=== PATIENT | male | born 1970 ===

== ENCOUNTER 2018-07-05 12:08 | Emergency (ER) | payer MEDICAID, MEDICARE, OTHER ==
[2018-07-05] MEDS ORDERED: Iohexol 240 (50 ml) PO ONE (12:27)
[2018-07-05] MEDS ORDERED: Iohexol 240 (50 ml) ONE (12:44)
[2018-07-05 13:13] LABS: BASO # 0.1 K/uL (0.0-0.2); EOS # 0.2 K/uL (0.0-0.7); EOS % 3.6 % (0.0-4.0); HEMOGLOBIN 14.7 g/dL (12.0-18.0); LYMPH # 1.3 K/uL (1.0-4.3); LYMPH % 25.6 % (20.0-40.0); MEAN CORPUSCULAR HEMOGLOBIN 32.5 pg (27.0-31.0); MEAN CORPUSCULAR HGB CONC 33.8 g/dL (33.0-37.0); MEAN PLATELET VOLUME 9.1 fl (7.2-11.7); MONO # 0.7 K/uL (0.0-0.8); MONO % 14.2 % (0.0-10.0); NEUT # 2.8 K/uL (1.8-7.0); NEUT % 55.6 % (50.0-75.0); NRBC % 0.1 % (0.0-0.0); RBC 4.53 Mil/uL (4.40-5.90); RED CELL DISTRIBUTION WIDTH 13.1 % (11.5-14.5)
--- NOTE | 2018-07-05 13:16 | CP.PCM.CON ---
History of Present Illness - History of Present Illness History of Present Illness: General Surgery - Dr. Floyd 48yo M w/ hx of B/L inguinal hernia [place] [address] Collier, presenting with complaints of pain at site of a known recurrent Left inguinal hernia. Pt states he's had this recurrence for a few years now. He occasionally has pain to the area but as of the past several days he's noticed it become significantly larger and more painful. He also complains of nausea and intermittent constipation, as well as urinary urgency. He denies any vomiting, diarrhea, dysuria, hematuria, fevers/chills, sob or chest pain. Pt states that he has never been able to reduce the hernia. PMH: none PSH: Right shoulder surgery w/ screws, B/L Inguinal hernia repair (2010) NKDA No meds Smokes 1 ppd, ETOH socially, No illicit drug use Pt was seen in the ED. Vitals stable and WNL. Pt is noted to have a large incarcerated Left inguinal hernia with skin darkening over the inguinal canal. Labs and CT scan pending. Review of Systems - Review of Systems All systems: reviewed and no additional remarkable complaints except (as per HPI ) Past Patient History - Past Social History Smoking Status: Current Some Days Smoker - GASTROINTESTINAL Other/Comment: inguinal hernia - PSYCHIATRIC Hx Substance Use: No - SURGICAL HISTORY Hx Appendectomy: Yes Hx Herniorrhaphy: Yes Hx Orthopedic Surgery: Yes Other/Comment: rt. shoulder sx. w/ screw - ANESTHESIA Hx Anesthesia: Yes Hx Anesthesia Reactions: No Meds Allergies/Adverse Reactions: Allergies Allergy/AdvReac Type Severity Reaction Status Date / Time No Known Allergies Allergy Verified 07/05/18 12:20 Physical Exam - Constitutional Appears: Well, No Acute Distress - Head Exam Head Exam: ATRAUMATIC, NORMAL INSPECTION, NORMOCEPHALIC - Eye Exam Eye Exam: Normal appearance - ENT Exam ENT Exam: Mucous Membranes Moist, Normal Exam - Respiratory Exam Respiratory Exam: Clear to Auscultation Bilateral, NORMAL BREATHING PATTERN - Cardiovascular Exam Cardiovascular Exam: REGULAR RHYTHM - GI/Abdominal Exam GI & Abdominal Exam: Distended (mild), Hernia (Large L inguinal hernia, not reducible), Soft, Tenderness (mild ttp over L inguinal canal). absent: Firm, Guarding, Rebound, Rigid - Neurological Exam Neurological exam: Alert, Oriented x3 - Psychiatric Exam Psychiatric exam: Normal Affect, Normal Mood - Skin Skin Exam: Dry, Intact Results - Vital Signs Recent Vital Signs: Last Vital Signs Temp 98.1 F 07/05/18 12:20 Pulse 92 H 07/05/18 12:20 Resp 18 07/05/18 12:20 BP 102/67 07/05/18 12:20 Pulse Ox 100 07/05/18 12:20 Assessment & Plan - Assessment and Plan (Free Text) Assessment: 48yo M w/ Recurrent, Incarcerated Left Inguinal Hernia
[2018-07-05 13:25] LABS: ALB/GLOB RATIO 1.2 (1.0-2.1); ALBUMIN 3.9 g/dL (3.5-5.0); ALT/SGPT 141 U/L (21-72); AST/SGOT 84 U/L (17-59); BLOOD UREA NITROGEN 11 mg/dl (9-20); CALCIUM 9.2 mg/dL (8.4-10.2); GFR NON-AFRICAN AMERICAN > 60
[2018-07-05] MEDS ORDERED: Sodium Chloride 0.9% 50 ML IV ONE (15:14)
[2018-07-05] MEDS ORDERED: Iohexol 300 100 ML IJ ONE (15:14)
--- NOTE | 2018-07-05 16:12 | CT ---
Date of service: 07/05/2018 PROCEDURE: CT Abdomen and Pelvis with contrast HISTORY: large scrotal hernia, scan through scrotum COMPARISON: 01/14/2016 CT abdomen and pelvis. TECHNIQUE: Contrast dose: 90 cc Omnipaque 300 Radiation dose: Total exam DLP = 731.21 mGy-cm. This CT exam was performed using one or more of the following dose reduction techniques: Automated exposure control, adjustment of the mA and/or kV according to patient size, and/or use of iterative reconstruction technique. FINDINGS: LOWER THORAX: Unremarkable. LIVER: Unremarkable. No gross lesion or ductal dilatation. GALLBLADDER AND BILE DUCTS: Unremarkable. PANCREAS: Unremarkable. No gross lesion or ductal dilatation. SPLEEN: Unremarkable. ADRENALS: Unremarkable. No mass. KIDNEYS AND URETERS: Unremarkable. No hydronephrosis. No solid mass. Multiple punctate nonobstructing left renal calculi. No change compared to the prior study. Incidental 1.5 cm cyst lower pole right kidney. VASCULATURE: Unremarkable. No aortic aneurysm. BOWEL: Constipation without fecal impaction or obstruction. APPENDIX: No abnormalities to suggest acute appendicitis. No right lower quadrant inflammatory processes identified. PERITONEUM: Unremarkable. No free fluid. No free air. LYMPH NODES: Unremarkable. No enlarged lymph nodes. BLADDER: Unremarkable. REPRODUCTIVE: Large left hydrocele on CT measuring 15 x 8.4 x 13.8 cm. No evidence of associated inguinal hernia. BONES: No acute fracture. OTHER FINDINGS: None. IMPRESSION: Large, unilateral-left hydrocele. No evidence of inguinal hernia. Additional benign and/or incidental findings described above. No significant interval change otherwise detected. No acute findings related to/accounting for the clinical presentation.
--- NOTE | 2018-07-05 16:23 | ED PDOC ---
HPI: General Adult Time Seen by Provider: 07/05/18 12:24 Chief Complaint (Nursing): Male Genitourinary Chief Complaint (Provider): L scrotal mass History Per: Patient History/Exam Limitations: no limitations Location Of Discomfort (Image): 1 - pain swelling Similar Symptoms Previously: ++ Recently: Treated By A Physician Additional Complaint(s): 48yo male c/o L inguinal pain and scrotal swelling, had an inguinal hernia repair at [facility] approx 7yrs ago and believes symptoms have returned. Also notes some ?hyperpigmentation to the L abdominal wall ongoing for about a week. Denies fever, GI symptoms, weakness, back pain, urinary symptoms other than occassional stress incontinence. Past Medical History Reviewed: Historical Data, Nursing Documentation, Vital Signs Vital Signs: Last Vital Signs Temp 98.1 F 07/05/18 12:20 Pulse 92 H 07/05/18 12:20 Resp 18 07/05/18 12:20 BP 102/67 07/05/18 12:20 Pulse Ox 100 07/05/18 17:03 - Medical History PMH: Hiatal Hernia - Surgical History Surgical History: Appendectomy, Hernia Repair - Family History Family History: States: Unknown Family Hx - Living Arrangements Living Arrangements: With Family - Social History Current smoker - smoking cessation education provided: No - Immunization History Hx Tetanus Toxoid Vaccination: No Hx Influenza Vaccination: No Hx Pneumococcal Vaccination: No - Home Medications Home Medications: Ambulatory Orders Medication Instructions Recorded Acetaminophen [Acetaminophen Extra 2 tab PO Q6H PRN #50 tablet 09/05/16 Strength] traMADol [Ultram] 50 mg PO TID PRN #12 tab 07/05/18 - Allergies Allergies/Adverse Reactions: Allergies Allergy/AdvReac Type Severity Reaction Status Date / Time No Known Allergies Allergy Verified 07/05/18 12:20 Review of Systems ROS Statement: Except As Marked, All Systems Reviewed And Found Negative Constitutional: Negative for: Fever Respiratory: Negative for: Cough Gastrointestinal: Positive for: Abdominal Pain Genitourinary Male: Positive for: Incontinence, Scrotal Pain. Negative for: Penile Discharge Musculoskeletal: Negative for: Neck Pain, Back Pain Skin: Positive for: Other (dark area on abdomen). Negative for: Rash, Lesions Neurological: Negative for: Weakness, Numbness Psych: Negative for: Anxiety Physical Exam - Reviewed Nursing Documentation Reviewed: Yes Vital Signs Reviewed: Yes - Physical Exam Appears: Positive for: Well, Non-toxic, No Acute Distress Head Exam: Positive for: ATRAUMATIC, NORMAL INSPECTION, NORMOCEPHALIC Skin: Positive for: Normal Color, Warm, DRY Eye Exam: Positive for: EOMI, Normal appearance, PERRL ENT: Positive for: Normal ENT Inspection Neck: Positive for: Normal, Painless ROM Cardiovascular/Chest: Positive for: Regular Rate, Rhythm Respiratory: Positive for: CNT, Normal Breath Sounds Gastrointestinal/Abdominal: Positive for: Soft, Other (neg hernia in inguinal canal palpated). Negative for: Tenderness Male Genital Exam: Positive for: other (large edematous L scrotum nontender) Back: Positive for: Normal Inspection Extremity: Positive for: Normal ROM Neurologic/Psych: Positive for: Alert, Oriented - Laboratory Results Result Diagrams: 07/05/18 13:07 07/05/18 13:07 - ECG O2 Sat by Pulse Oximetry: 100 Medical Decision Making Medical Decision Making: Accession No. : [id number] Patient Name / ID : NO DUBOSE / [id number] Exam Date : 07/05/2018 15:22:35 ( Approved ) Study Comment : Sex / Age : M / 48Y Creator : Petar Perales MD Dictator : Petar Perales MD Manager Of Software : Office Clerk : Petar Perales MD Approver2 : Report Date : 07/05/2018 16:10:59 My Comment : Date of service: 07/05/2018 PROCEDURE: CT Abdomen and Pelvis with contrast HISTORY: large scrotal hernia, scan through scrotum COMPARISON: 01/14/2016 CT abdomen and pelvis. TECHNIQUE: Contrast dose: 90 cc Omnipaque 300 Radiation dose: Total exam DLP = 731.21 mGy-cm. This CT exam was performed using one or more of the following dose reduction techniques: Automated exposure control, adjustment of the mA and/or kV according to patient size, and/or use of iterative reconstruction technique. FINDINGS: LOWER THORAX: Unremarkable. LIVER: Unremarkable. No gross lesion or ductal dilatation. GALLBLADDER AND BILE DUCTS: Unremarkable. PANCREAS: Unremarkable. No gross lesion or ductal dilatation. SPLEEN: Unremarkable. ADRENALS: Unremarkable. No mass. KIDNEYS AND URETERS: Unremarkable. No hydronephrosis. No solid mass. Multiple punctate nonobstructing left renal calculi. No change compared to the prior study. Incidental 1.5 cm cyst lower pole right kidney. VASCULATURE: Unremarkable. No aortic aneurysm. BOWEL: Constipation without fecal impaction or obstruction. APPENDIX: No abnormalities to suggest acute appendicitis. No right lower quadrant inflammatory processes identified. PERITONEUM: Unremarkable. No free fluid. No free air. LYMPH NODES: Unremarkable. No enlarged lymph nodes. BLADDER: Unremarkable. REPRODUCTIVE: Large left hydrocele on CT measuring 15 x 8.4 x 13.8 cm. No evidence of associated inguinal hernia. BONES: No acute fracture. OTHER FINDINGS: None. IMPRESSION: Large, unilateral-left hydrocele. No evidence of inguinal hernia. Additional benign and/or incidental findings described above. No significant interval change otherwise detected. No acute findings related to/accounting for the clinical presentation. DC to followup w urology. He stated scrotal swelling ongoing for years and no current pain. Suggested urology clinic at [facility] if insurance issues preclude obtaining care locally, but gave internet consultant urology contact info. Disposition - Clinical Impression Clinical Impression: Hydrocele - Patient ED Disposition Is Patient to be Admitted: No Counseled Patient/Family Regarding: Studies Performed, Diagnosis, Need For Followup - Disposition Referrals: Lucero Ramos MD [Medical Doctor] - Disposition: Routine/Home Disposition Time: 16:23 Condition: STABLE Additional Instructions: Followup with urology for advice on intervention for large hydrocele. Return to ER for any worse or new symptoms. Prescriptions: traMADol [Ultram] 50 mg PO TID PRN #12 tab PRN Reason: Pain, Moderate (4-7) Instructions: Hydrocele/Varicocele (DC) Forms: [employer] (Portuguese)
[2018-07-05 17:07] VITALS: BP 132/78; PULSE 86; RESP 20; TEMP 98.6
[2018-07-05 17:08] VITALS: O2SAT 100
== END 2018-07-05 17:07 | disposition home or self-care (01) ==
LOC: H.ER 12:08
DX: N43.3 Hydrocele, unspecified (principal); N39.3 Stress incontinence (female) (male)
CPT/HCPCS: 74177; 80053; 85025; 99284; Q9966; Q9967

== ENCOUNTER 2019-01-03 11:44 | Emergency (ER) | payer MEDICAID, OTHER ==
[2019-01-03 11:52] VITALS: BMI 22.1
[2019-01-03 11:54] VITALS: RESP 18; O2SAT 99
--- NOTE | 2019-01-03 14:28 | CT ---
Date of service: 01/03/2019 PROCEDURE: CT Lumbar Spine without contrast HISTORY: R/O cord compression, + bowel/bladder incontinence COMPARISON: None available. TECHNIQUE: Axial computed tomography images were obtained of the lumbar spine without the use of intravenous contrast. Coronal and sagittal reformatted images were created and reviewed. Radiation dose: Total exam DLP = 367.88 mGy-cm. This CT exam was performed using one or more of the following dose reduction techniques: Automated exposure control, adjustment of the mA and/or kV according to patient size, and/or use of iterative reconstruction technique. FINDINGS: VERTEBRAE: Limited straightening. No fracture. No spondylolisthesis. No destructive bony lesion identified. DISCS/SPINAL CANAL/NEURAL FORAMINA: L1-2: Unremarkable. L2-3: Unremarkable. L3-4: Circumferential disc bulging flattens the ventral thecal sac somewhat but without significant central stenosis. L4-5: Circumferential disc bulging is minimal blood flattens the ventral thecal sac somewhat without significant central stenosis resulting. L5-S1: Unremarkable. PARASPINAL SOFT TISSUES: Unremarkable. OTHER FINDINGS: None. IMPRESSION: Seven straightened lumbar curvature without fracture or spondylolisthesis identified. Minimal disc bulging is appreciate without significant central canal stenosis though flattening the ventral thecal sac is encountered (L3-4 and L4-5).
[2019-01-03 14:31] LABS: BASO # 0.1 K/uL (0.0-0.2); BASO % 0.9 % (0.0-2.0); EOS # 0.1 K/uL (0.0-0.7); EOS % 1.8 % (0.0-4.0); HEMOGLOBIN 15.8 g/dL (12.0-18.0); LYMPH # 2.6 K/uL (1.0-4.3); LYMPH % 30.8 % (20.0-40.0); MEAN CELL VOLUME 96.9 fl (80.0-94.0); MEAN CORPUSCULAR HEMOGLOBIN 32.4 pg (27.0-31.0); MEAN CORPUSCULAR HGB CONC 33.5 g/dL (33.0-37.0); MEAN PLATELET VOLUME 9.2 fl (7.2-11.7); MONO % 11.7 % (0.0-10.0); NEUT # 4.7 K/uL (1.8-7.0); NEUT % 54.8 % (50.0-75.0); NRBC % 0.1 % (0.0-0.0); RBC 4.87 Mil/uL (4.40-5.90); RED CELL DISTRIBUTION WIDTH 13.2 % (11.5-14.5); SQUAMOUS EPITHIAL < 1 /hpf (0-5); URINE BACTERIA RARE (<OCC); URINE BILIRUBIN NEGATIVE (NEGATIVE); URINE BLOOD NEGATIVE (NEGATIVE); URINE CLARITY CLEAR (Clear); URINE COLOR YELLOW (YELLOW); URINE GLUCOSE (UA) NEG (NEGATIVE); URINE LEUKOCYTE ESTERASE NEG Leu/uL (Negative); URINE PROTEIN NEGATIVE (NEGATIVE); URINE UROBILINOGEN 0.2-1.0 mg/dL (0.2-1.0); WHITE BLOOD COUNT 8.5 K/uL (4.8-10.8)
--- NOTE | 2019-01-03 14:53 | ED PDOC ---
HPI: General Adult Time Seen by Provider: 01/03/19 12:49 Chief Complaint (Nursing): Hip Pain Chief Complaint (Provider): left sided hip pain, urinary and fecal incontinence History Per: Patient History/Exam Limitations: no limitations Onset/Duration Of Symptoms: Days (x3) Current Symptoms Are (Timing): Still Present Additional Complaint(s): Aubrey Romo is a 48 year old male, with a past medical history of bilateral inguinal hernia repair several years ago with return of left inguinal hernia at least x1 year ago, who presents to the emergency department complaining of intermittent left sided hip pain, fecal and urinary incontinence onset for x3 days. Patient states he has a known left inguinal hernia and hydrocele. Patient states hip pain is unrelated to activity and reports a left sided numbness on heels. Patient also reports developing urinary and fecal incontinence and states he feels nauseous when he attempts to have a bowel movement or urinate. Patient states his left great toe was rupal or spasming over the past couple of days but denies any vomiting, diarrhea, gait instability or other medical complaints. PMD: Clinic Past Medical History Reviewed: Historical Data, Nursing Documentation, Vital Signs Vital Signs: Last Vital Signs Temp 98.2 F 01/03/19 11:53 Pulse 83 01/03/19 11:53 Resp 18 01/03/19 11:53 BP 129/81 01/03/19 11:53 Pulse Ox 99 01/03/19 11:53 - Medical History PMH: Hiatal Hernia - Surgical History Surgical History: Appendectomy, Hernia Repair - Family History Family History: States: Unknown Family Hx - Social History Current smoker - smoking cessation education provided: Yes (Current some days smoker) Alcohol: Social Drugs: Denies - Immunization History Hx Tetanus Toxoid Vaccination: No Hx Influenza Vaccination: No Hx Pneumococcal Vaccination: No - Home Medications Home Medications: Ambulatory Orders Medication Instructions Recorded Acetaminophen [Acetaminophen Extra 2 tab PO Q6H PRN #50 tablet 09/05/16 Strength] traMADol [Ultram] 50 mg PO TID PRN #12 tab 07/05/18 Ibuprofen [Motrin Tab] 600 mg PO Q6 PRN 7 Days tab 01/03/19 - Allergies Allergies/Adverse Reactions: Allergies Allergy/AdvReac Type Severity Reaction Status Date / Time No Known Allergies Allergy Verified 07/05/18 12:20 Review of Systems ROS Statement: Except As Marked, All Systems Reviewed And Found Negative Gastrointestinal: Positive for: Nausea. Negative for: Vomiting, Diarrhea Genitourinary Male: Positive for: Incontinence (bowel and bladder) Musculoskeletal: Positive for: Other (left hip pain) Neurological: Positive for: Numbness (on heel). Negative for: Other (gait instability) Physical Exam - Reviewed Nursing Documentation Reviewed: Yes Vital Signs Reviewed: Yes - Physical Exam Appears: Positive for: No Acute Distress Head Exam: Positive for: ATRAUMATIC, NORMAL INSPECTION, NORMOCEPHALIC Skin: Positive for: Normal Color, Warm, Dry Eye Exam: Positive for: Normal appearance, EOMI, PERRL Neck: Positive for: Normal, Painless ROM Cardiovascular/Chest: Positive for: Regular Rate, Rhythm. Negative for: Murmur Respiratory: Positive for: Normal Breath Sounds. Negative for: Respiratory Distress Pulses-Femoral (L): 2+ Pulses-Post. Tibialis (R): 2+ Gastrointestinal/Abdominal: Positive for: Normal Exam, Soft. Negative for: Tenderness, Guarding, Rebound Male Genital Exam: Positive for: scrotum tenderness (L) (mildly tender. Swelling of left scrotum but no erythema. ), other (Apprentice Plumber: ED JUAN A Sim. ). Negative for: scrotum tenderness (R) Back: Positive for: Normal Inspection (No ecchymosis, erythema or tenderness on palpation). Negative for: L CVA Tenderness, R CVA Tenderness, Vertebral Tenderness Rectal: Positive for: Normal Exam (Apprentice Plumber: news technical directormoris giraldo). Negative for: Hemorrhoids Extremity: Positive for: Normal ROM (Normal ROM with flexion and abduction of hip. Normal ROM with flexion and extension of knee.), Other (Some pain on abduction and flexion of left hip passively.) Neurologic/Psych: Positive for: Alert, Oriented. Negative for: Motor/Sensory Deficits - Laboratory Results Result Diagrams: 01/03/19 14:15 01/03/19 14:15 Lab Results: Urine Color Yellow (YELLOW) 01/03/19 14:15 Urine Clarity Clear (Clear) 01/03/19 14:15 Urine pH 6.0 (5.0-8.0) 01/03/19 14:15 Ur Specific [place] 1.009 (1.003-1.030) 01/03/19 14:15 Urine Protein Negative mg/dL (NEGATIVE) 01/03/19 14:15 Urine Glucose (UA) Neg mg/dL (NEGATIVE) 01/03/19 14:15 Urine Ketones Negative mg/dL (NEGATIVE) 01/03/19 14:15 Urine Blood Negative (NEGATIVE) 01/03/19 14:15 Urine Nitrate Negative (NEGATIVE) 01/03/19 14:15 Urine Bilirubin Negative (NEGATIVE) 01/03/19 14:15 Urine Urobilinogen 0.2-1.0 mg/dL (0.2-1.0) 01/03/19 14:15 Ur Leukocyte Esterase Neg Indra/uL (Negative) 01/03/19 14:15 Urine RBC (Auto) 2 /hpf (0-3) 01/03/19 14:15 Urine Microscopic WBC < 1 /hpf (0-5) 01/03/19 14:15 Ur Squamous Epith Cells < 1 /hpf (0-5) 01/03/19 14:15 Urine Bacteria Rare (<OCC) 01/03/19 14:15 - ECG O2 Sat by Pulse Oximetry: 99 (RA) Pulse Ox Interpretation: Normal Medical Decision Making Medical Decision Making: Time: 12:49 Initial Impression: Hernia. Will do lumbar spine CT w/o contrast to r/o cord compression. Initial Plan: --Lumbar Spine w/o contrast [CT] --CMP --CBC w/ differential --Motrin tab 600 mg PO --Urine culture --Urinalysis --Testes Duplex Complete [US] --Reevaluation 14:[address] FINDINGS: VERTEBRAE: Limited straightening. No fracture. No spondylolisthesis. No destructive bony lesion identified. DISCS/SPINAL CANAL/NEURAL FORAMINA: L1-2: Unremarkable. L2-3: Unremarkable. L3-4: Circumferential disc bulging flattens the ventral thecal sac somewhat but without significant central stenosis. L4-5: Circumferential disc bulging is minimal blood flattens the ventral th ecal sac somewhat without significant central stenosis resulting. L5-S1: Unremarkable. PARASPINAL SOFT TISSUES: Unremarkable. OTHER FINDINGS: None. IMPRESSION: Seven straightened lumbar curvature without fracture or spondylolisthesis identified. Minimal disc bulging is appreciate without significant central canal stenosis though flattening the ventral thecal sac is encountered (L3-4 and L4-5). 16:28 Testicular US FINDINGS: RIGHT TESTICLE: Measures 5.5 x 3.4 x 2.4 cm. Normal echotexture and flow. RIGHT EPIDIDYMIS: Epididymal head measures 1.1 x 1.7 x 1.1 cm. Grossly unremarkable appearance with normal flow. LEFT TESTICLE: Measures 6.7 x 3.7 x 3.3 cm. Normal echotexture and flow, despite being mildly enlarged. LEFT EPIDIDYMIS: Epididymal head measures 0.5 x 0.4 x 1.4 cm. Grossly unremarkable appearance with normal flow. HYDROCELE: Mild right hydrocele. Gross left hydrocele. VARICOCELE: None. OTHER FINDINGS: No hernia identified either hemiscrotum. IMPRESSION: Gross mildly complicated hydrocele with internal debris but no color Doppler blood flow. Examination otherwise remarkable for prominent left testicle but no cyst or solid mass related. ----- Scribe Attestation: Documented by Xu Dong, acting as a scribe for Gina Antony PA-C. Provider Scribe Attestation: All medical record entries made by the Scribe were at my direction and personally dictated by me. I have reviewed the chart and agree that the record accurately reflects my personal performance of the history, physical exam, medical decision making, and the department course for this patient. I have also personally directed, reviewed, and agree with the discharge instructions and disposition. Dr. Phelps of Urology called and came to see patient in ER. He performed bedside bladder scan w/o any significant urinary retention noted. Patient to f/u with him in the morning for drainage of hydrocele. Stable for d/c home. Disposition - Clinical Impression Clinical Impression: Hydrocele, Hip pain, left - Patient ED Disposition Is Patient to be Admitted: No Discussed With : Floyd Phelps - Disposition Referrals: Floyd Phelps MD [Medical Doctor] - Disposition Time: 17:48 Condition: STABLE Additional Instructions: F/u with Dr. Phelps tomorrow. Return to ER if you have leg weakness or increased pain. Take Tylenol or Ibuprofen for pain Prescriptions: Ibuprofen [Motrin Tab] 600 mg PO Q6 PRN 7 Days tab PRN Reason: Pain, Moderate (4-7) Instructions: Hip Pain (DC), Hydrocele/Varicocele (DC) Forms: [email or web address] (Martiniquais) Print Language: POLISH
[2019-01-03 14:56] LABS: ALB/GLOB RATIO 1.2 (1.0-2.1); ALBUMIN 4.4 g/dL (3.5-5.0); ALT/SGPT 114 U/L (21-72); AST/SGOT 96 U/L (17-59); BLOOD UREA NITROGEN 8 mg/dl (9-20); CALCIUM 9.5 mg/dL (8.4-10.2); GFR NON-AFRICAN AMERICAN > 60
--- NOTE | 2019-01-03 16:31 | US ---
Date of service: 01/03/2019 HISTORY: evaluate left inguinal hernia TECHNIQUE: Realtime sonography through the scrotum with color and doppler flow. COMPARISON: None Available. FINDINGS: RIGHT TESTICLE: Measures 5.5 x 3.4 x 2.4 cm. Normal echotexture and flow. RIGHT EPIDIDYMIS: Epididymal head measures 1.1 x 1.7 x 1.1 cm. Grossly unremarkable appearance with normal flow. LEFT TESTICLE: Measures 6.7 x 3.7 x 3.3 cm. Normal echotexture and flow, despite being mildly enlarged. LEFT EPIDIDYMIS: Epididymal head measures 0.5 x 0.4 x 1.4 cm. Grossly unremarkable appearance with normal flow. HYDROCELE: Mild right hydrocele. Gross left hydrocele. VARICOCELE: None. OTHER FINDINGS: No hernia identified either hemiscrotum. IMPRESSION: Gross mildly complicated hydrocele with internal debris but no color Doppler blood flow. Examination otherwise remarkable for prominent left testicle but no cyst or solid mass related.
[2019-01-03 17:53] VITALS: BP 118/73; PULSE 68; TEMP 98.4
== END 2019-01-03 18:00 | disposition home or self-care (01) ==
LOC: H.ER 11:44
DX: M25.552 Pain in left hip (principal); N43.3 Hydrocele, unspecified; R32 Unspecified urinary incontinence; K40.90 Unilateral inguinal hernia, without obstruction or gangrene, not specified as recurrent

== ENCOUNTER 2019-01-06 15:36 | Emergency (ER) | payer SELFPAY ==
[2019-01-06 15:36] VITALS: BMI 22.1
[2019-01-06 16:00] VITALS: PULSE 89; RESP 20; TEMP 98.5; O2SAT 99
--- NOTE | 2019-01-06 17:55 | ED PDOC ---
HPI: General Adult Time Seen by Provider: 01/06/19 16:25 Chief Complaint (Nursing): Male Genitourinary Chief Complaint (Provider): Hernia History Per: Patient History/Exam Limitations: no limitations Onset/Duration Of Symptoms: Other (x3 months) Current Symptoms Are (Timing): Still Present Additional Complaint(s): 48 year old male was sent to the ED by Dr. Blum for a left inguinal hernia. Patient was scheduled for a hernia repair but came for a CT scan. He reports he has had a worsening left inguinal hernia for 3 months. Patient states he has had bilateral inguinal hernia repair in the past. Denies abdominal pain, testicular pain, fever, difficulty urinating or difficulty having bowel movement. PMD: Lei Bautista Past Medical History Reviewed: Historical Data, Nursing Documentation, Vital Signs Vital Signs: Last Vital Signs Temp 98.5 F 01/06/19 15:58 Pulse 89 01/06/19 15:58 Resp 20 01/06/19 15:58 BP 134/79 01/06/19 15:58 Pulse Ox 99 01/06/19 15:58 - Medical History PMH: Hiatal Hernia - Surgical History Surgical History: Appendectomy, Hernia Repair - Family History Family History: States: Unknown Family Hx - Immunization History Hx Tetanus Toxoid Vaccination: No Hx Influenza Vaccination: No Hx Pneumococcal Vaccination: No - Home Medications Home Medications: Ambulatory Orders Medication Instructions Recorded Acetaminophen [Acetaminophen Extra 2 tab PO Q6H PRN #50 tablet 09/05/16 Strength] traMADol [Ultram] 50 mg PO TID PRN #12 tab 07/05/18 Ibuprofen [Motrin Tab] 600 mg PO Q6 PRN 7 Days tab 01/03/19 - Allergies Allergies/Adverse Reactions: Allergies Allergy/AdvReac Type Severity Reaction Status Date / Time No Known Allergies Allergy Verified 07/05/18 12:20 Review of Systems ROS Statement: Except As Marked, All Systems Reviewed And Found Negative Constitutional: Negative for: Fever Gastrointestinal: Negative for: Abdominal Pain Genitourinary Male: Positive for: Other (Inguinal hernia; no testicular pain) Physical Exam - Reviewed Nursing Documentation Reviewed: Yes Vital Signs Reviewed: Yes - Physical Exam Appears: Positive for: Non-toxic, No Acute Distress Head Exam: Positive for: ATRAUMATIC, NORMOCEPHALIC Skin: Positive for: Normal Color, Warm, Dry Eye Exam: Positive for: Normal appearance Neck: Positive for: Normal, Painless ROM Cardiovascular/Chest: Positive for: Regular Rate, Rhythm Respiratory: Positive for: Normal Breath Sounds. Negative for: Wheezing, Respiratory Distress Gastrointestinal/Abdominal: Positive for: Normal Exam, Soft. Negative for: T enderness Male Genital Exam: Positive for: other (Grapefruit sized left testicle) Extremity: Positive for: Normal ROM Neurologic/Psych: Positive for: Alert, Oriented Comments: Site Superintendent: Nurse Aubree Reed - Laboratory Results Result Diagrams: 01/06/19 18:32 01/06/19 18:32 - ECG O2 Sat by Pulse Oximetry: 99 (RA) Pulse Ox Interpretation: Normal Medical Decision Making Medical Decision Making: Initial Impression: Inguinal hernia Initial Plan: --CT abd/pelvis --CMP --ED urine dipstick --CBC --PTT --Prothrombin time --Urinalysis Name: GRACY SARABIA Exam Date: Jan 06, 2019 7:15:34 PM EST Modality Type: CT\ Description: CT - ABDOMEN AND PELVIS Gender: M Laterality: Bilateral : 66 Referring Physician: Chely Edmonds EXAM: CT Abdomen and Pelvis with IV contrast CLINICAL HISTORY: L INGUINAL HERNIA h/o left hydrocele TECHNIQUE: Axial computed tomography images of the abdomen and pelvis with intravenous contrast. 405.56 mGy-cm CONTRAST: With; [id number] 95ML COMPARISON: None provided. FINDINGS: LUNG BASES: The lung bases appear clear. No pleural effusions are seen. LIVER: Unremarkable. GALLBLADDER AND BILE DUCTS: The gallbladder is contracted. No radioopaque gallstones are seen. No biliary ductal dilatation is evident. PANCREAS: Unremarkable. SPLEEN: Unremarkable. ADRENAL GLANDS: Unremarkable. KIDNEYS, URETERS, AND BLADDER: Severe bladder wall thickening is noted measuring up to 12 mm, consistent with cystitis. 1.5 cm right renal cyst is seen. The kidneys are otherwise WNL. STOMACH AND BOWEL: Thick walled fluid filled duodenum and loops of jejunum as well as ileum compatible with enteritis. Infectious and inflammatory etiologies are considered. Consider consultation with GI service. Moderate amount of fecal material is seen throughout the colon compatible with constipation. APPENDIX: No evidence of acute appendicitis on CT examination. PERITONEUM: No free fluid. No free air. LYMPH NODES: No lymphadenopathy is evident. REPRODUCTIVE: Unremarkable as visualized. VASCULATURE: No evidence of abdominal aortic aneurysm. BONES: No aggressive appearing osseous lesion. No acute osseous pathology evident. IMPRESSION: 1. Severe enteritis. Infectious and inflammatory etiologies are considered. Consider consultation with GI service. 2. Constipation. 3. Severe cystitis. Electronically signed on Jan 06, 2019 8:29:17 PM EST by: rBaulio Beth M.D., MBA Certified By [facility] Fellowship Trained MRI and CT Specialist Very large left hydrocele is noted (as per history). Consider correlation with scrotal US. Addendum electronically signed by Braulio Beth M.D., MBA Certified By [facility] on January 06, 2019 9:08:54 PM EST 21:40 Dr. Phelps paged. 22:[address] Phelps, states will schedule for hydrocele removal next week. Scribe Attestation: Documented by Merritt Shepherd acting as a scribe for Chely Edmonds MD. Provider Scribe Attestation: All medical record entries made by the Scribe were at my direction and personally dictated by me. I have reviewed the chart and agree that the record accurately reflects my personal performance of the history, physical exam, medical decision making, and the department course for this patient. I have also personally directed, reviewed, and agree with the discharge instructions and disposition. Disposition - Clinical Impression Clinical Impression: Hydrocele in adult - Disposition Referrals: Floyd Phelps MD [Medical Doctor] - Disposition: Routine/Home Disposition Time: 21:45 Condition: STABLE Instructions: Hydrocele Forms: [employer] (Persian)
[2019-01-06 18:38] LABS: BASO # 0.1 K/uL (0.0-0.2); BASO % 1.1 % (0.0-2.0); EOS # 0.2 K/uL (0.0-0.7); EOS % 2.7 % (0.0-4.0); HEMOGLOBIN 15.8 g/dL (12.0-18.0); LYMPH % 23.6 % (20.0-40.0); MEAN CORPUSCULAR HEMOGLOBIN 32.1 pg (27.0-31.0); MEAN CORPUSCULAR HGB CONC 33.1 g/dL (33.0-37.0); MONO % 11.8 % (0.0-10.0); NEUT % 60.8 % (50.0-75.0); RBC 4.92 Mil/uL (4.40-5.90); RED CELL DISTRIBUTION WIDTH 13.4 % (11.5-14.5); WHITE BLOOD COUNT 8.3 K/uL (4.8-10.8)
[2019-01-06 18:50] LABS: PROTHROMBIN TIME 11.7 Seconds (9.8-13.1)
[2019-01-06 18:53] LABS: PARTIAL THROMBOPLASTIN TIME 32.4 Seconds (25.6-37.1)
[2019-01-06 19:01] LABS: ALB/GLOB RATIO 1.1 (1.0-2.1); ALBUMIN 4.2 g/dL (3.5-5.0); ALT/SGPT 108 U/L (21-72); AST/SGOT 76 U/L (17-59); BLOOD UREA NITROGEN 16 mg/dl (9-20); CALCIUM 9.6 mg/dL (8.4-10.2); GFR NON-AFRICAN AMERICAN > 60
[2019-01-06] MEDS ORDERED: Sodium Chloride 0.9% 50 ML IV ONE (19:12)
[2019-01-06] MEDS ORDERED: Iohexol 300 100 ML IJ ONE (19:12)
[2019-01-06 19:55] LABS: URINE BACTERIA RARE (<OCC); URINE BILIRUBIN NEGATIVE (NEGATIVE); URINE BLOOD NEGATIVE (NEGATIVE); URINE CLARITY CLEAR (Clear); URINE COLOR YELLOW (YELLOW); URINE GLUCOSE (UA) NEG (NEGATIVE); URINE LEUKOCYTE ESTERASE NEG Leu/uL (Negative); URINE PROTEIN NEGATIVE (NEGATIVE); URINE UROBILINOGEN 0.2-1.0 mg/dL (0.2-1.0)
[2019-01-06 22:31] VITALS: BP 132/74
--- NOTE | 2019-01-07 13:40 | CT ---
Date of service: 01/06/2019 PROCEDURE: CT Abdomen and Pelvis with contrast HISTORY: L inguinal hernia COMPARISON: 07/05/2018 TECHNIQUE: Contrast dose: 95 mL Omnipaque 300 Radiation dose: Total exam DLP = 405.56 mGy-cm. This CT exam was performed using one or more of the following dose reduction techniques: Automated exposure control, adjustment of the mA and/or kV according to patient size, and/or use of iterative reconstruction technique. FINDINGS: LOWER THORAX: Unremarkable. LIVER: Mild hepatomegaly. Liver measures 20.4 cm craniocaudal. Smooth contour. Normal attenuation. GALLBLADDER AND BILE DUCTS: Partially contracted. No calcified gallstones. No significant mural thickening or pericholecystic fluid. PANCREAS: Unremarkable. No gross lesion or ductal dilatation. SPLEEN: Unremarkable. ADRENALS: Unremarkable. No mass. KIDNEYS AND URETERS: 4 mm nonobstructing mid left renal calculus. No right renal calculus. 1.7 Correlated with renal ultrasound examination. No other renal mass. No hydronephrosis. VASCULATURE: Unremarkable. No aortic aneurysm. No aortic atherosclerotic calcification or mural plaque present. BOWEL: Suspect mass in splenic flexure of colon. Recommend further evaluation with colonoscopy. This is best demonstrated on series 3, image 53 and series 601, image 39. No bowel obstruction. Mild circumferential mural thickening of multiple loops of jejunum consistent with nonspecific enteritis. No other abnormal bowel loops. APPENDIX: Not identified. No secondary findings to suggest acute appendicitis. PERITONEUM: No ascites. No pneumoperitoneum. LYMPH NODES: Unremarkable. No enlarged lymph nodes. BLADDER: Poorly distended. Nevertheless, there is thickening of the bladder wall diffusely, suspicious for cystitis versus neoplasm versus chronic outlet obstruction. REPRODUCTIVE: Normal prostate. Large left hydrocele grossly unchanged in extent compared to prior CT examination. This does not represent an inguinal hernia. BONES: No acute fracture. OTHER FINDINGS: None. IMPRESSION: Suspicious for colonic mass at splenic flexure of colon. Further evaluation with colonoscopy is advised. Nonspecific enteritis involving multiple loops of jejunum nonobstructing small left renal calculus. Stable 1.7 cm low-density mass lower pole right kidney measuring 32 Hounsfield units. Correlate with renal ultrasound. Mild hepatomegaly.Diffuse thickening of bladder wall. Differential diagnosis includes cystitis, neoplasm or bladder outlet obstruction, chronic. Further evaluation is suggested. Large left hydrocele unchanged from 07/05/2018. No evidence of inguinal hernia. The preliminary findings for this examination were reported by [facility] at 8:29 p.m. on 01/06/2019. There is discordance of this report with the preliminary findings. Suspected colonic neoplasm was not described in the preliminary report of this examination. Further evaluation is advised. Left renal calculus was not described in the preliminary report of this examination.
== END 2019-01-06 21:56 | disposition home or self-care (01) ==
LOC: H.ER 15:36
DX: N43.3 Hydrocele, unspecified (principal)
CPT/HCPCS: 74177; 80053; 81003; 85025; 85610; 85730; 99284; Q9967

== ENCOUNTER 2019-01-11 09:00 | Inpatient (IN) | payer SELFPAY ==
[2019-01-10 14:36] VITALS: BMI 24.2
[2019-01-11] MEDS ORDERED: Sevoflurane - Inhalation Anesthetic Liq (250 ml) ONE (10:16)
[2019-01-11] MEDS ORDERED: Propofol 10 mg/ml Inj (20 ML) ONE (10:16)
[2019-01-11] MEDS ORDERED: Lactated Ringer's 1,000 ML IV ONE (10:17)
[2019-01-11] MEDS ORDERED: Bupivacaine 0.5% Inj(30mL) ONE (10:27)
[2019-01-11] MEDS ORDERED: Ciprofloxacin 400mg/200ml D5W 400 MG/200 ML BAG IVPB ONE (10:27)
[2019-01-11] MEDS ORDERED: Midazolam 2 MG/2 ML VIAL ONE (11:27)
[2019-01-11] MEDS ORDERED: Ciprofloxacin 400mg/200ml D5W IVPB ONE (11:35)
[2019-01-11] MEDS ORDERED: Dexamethasone 4 mg/1 ml ONE (11:44)
--- NOTE | 2019-01-11 11:48 | CARD ---
APPROVED REPORT Date of service: 01/11/2019 EKG Measurement Heart [id number] <Conclusion> Normal sinus rhythm Normal ECG
[2019-01-11] MEDS ORDERED: Phenylephrine 10 mg/ml Inj ONE (12:06)
[2019-01-11] MEDS ORDERED: Dexamethasone 4 mg/1 ml IVP PRN (12:57)
[2019-01-11] MEDS: HYDROmorphone 0.5 mg/0.5 ml ISec IVP PRN ×3 (13:10→17:25)
--- NOTE | 2019-01-11 15:20 | RAD ---
Date of service: 01/11/2019 HISTORY: preop COMPARISON: No prior. TECHNIQUE: Chest PA and lateral FINDINGS: LUNGS: No active pulmonary disease. PLEURA: No significant pleural effusion identified. No pneumothorax apparent. CARDIOVASCULAR: No aortic atherosclerotic calcification present. No radiographic findings to suggest acute or significant cardiovascular disease. No pulmonary vascular congestion. OSSEOUS STRUCTURES: No significant abnormalities. VISUALIZED UPPER ABDOMEN: Normal. OTHER FINDINGS: None. IMPRESSION: No active disease.
[2019-01-11] MEDS: Lactated Ringer's 1,000 ML IV SCH (15:30)
[2019-01-11 20:24] LABS: HEPATITIS B SURFACE AG Negative (NEGATIVE)
[2019-01-11 20:30] LABS: HEPATITIS A IGM NEGATIVE (NEGATIVE); HEPATITIS B CORE AB NEGATIVE (NEGATIVE)
[2019-01-11 20:45] LABS: HEPATITIS C ANTIBODY REACTIVE (NEGATIVE)
[2019-01-11] MEDS: Acetaminophen-Codeine 300/30 mg Tab PO PRN (22:14)
[2019-01-12] MEDS: Lactated Ringer's 1,000 ML IV SCH ×2 (01:02→12:16)
[2019-01-12] MEDS: Acetaminophen-Codeine 300/30 mg Tab PO PRN (23:11)
[2019-01-12 23:47] VITALS: RESP 20
[2019-01-13 06:34] LABS: HEMOGLOBIN 14.2 g/dL (12.0-18.0); MEAN CELL VOLUME 97.4 fl (80.0-94.0); MEAN CORPUSCULAR HEMOGLOBIN 32.7 pg (27.0-31.0); MEAN CORPUSCULAR HGB CONC 33.6 g/dL (33.0-37.0); RBC 4.33 Mil/uL (4.40-5.90); RED CELL DISTRIBUTION WIDTH 13.2 % (11.5-14.5); WHITE BLOOD COUNT 8.5 K/uL (4.8-10.8)
[2019-01-13 06:50] LABS: BLOOD UREA NITROGEN 9 mg/dl (9-20); CALCIUM 9.4 mg/dL (8.4-10.2); GFR NON-AFRICAN AMERICAN > 60
--- NOTE | 2019-01-13 08:05 | OP ---
PROCEDURE DATE: 01/11/2019 SURGEON: Floyd Phelps MD ANESTHESIOLOGIST: Ezekiel French MD ANESTHESIA: General LMA PROCEDURE: Hydrocelectomy INDICATION FOR PROCEDURE: The patient presents with a large left hydrocele. The ultrasound revealed approximately 600 to 700 mL fluid within the left hydrocele. DESCRIPTION OF PROCEDURE: The patient brought to the OR, prepped and draped in the usual manner after general anesthesia given. An incision was made in the left scrotum vertically. The tunica was then from the scrotal skin. With this accomplished, an incision was made in the tunica. The hydrocele sac was then dissected free of the scrotal skin. With this accomplished, an incision was made in the scrotal sac. Approximately 700 mL of clear fluid was suctioned out. The excess hydrocele sac was then excised. The excess tunica was then excised and all edges were sewnusing an interrupted 2-0 chromic, presented good hemostasis. Testicle was noted which appeared normal. The epididymis appeared normal. With this accomplished, the incision was made in the distal portion of the scrotum. An half-inch [place] drain was then inserted into the scrotum up to the testicle. With this accomplished, the skin was closed using interrupted 3-0 chromic catgut. The wound was then isolated with multiple 4x4s and fluffs. A scrotal support was then placed over the area that was described. Once this was placed, we ended the procedure. The patient tolerated the procedure well, left the OR in good condition. Floyd Phelps MD JUN
[2019-01-13 08:11] VITALS: BP 93/66; PULSE 72; TEMP 98.2; O2SAT 98
[2019-01-13] MEDS: Acetaminophen-Codeine 300/30 mg Tab PO PRN (09:56)
--- NOTE | 2019-01-20 09:15 | HP ---
Chief Complaint: L Hydrocele History of Present Illness: Patient presented with a large left hydrocele. Patient brought to OR for L Hydrocelectomy. Past Medical History: Same Family History: Non contributory Review of Symptoms: All system reviewed and no additional complaints except (mentioned above) Vital Signs: Reviewed Allergies: No Known Allergies Physical Examination: General Appearance Normal Systems: Head: Normal Eyes: Normal ENT: Normal Neck: Normal Thorax: Normal Breasts:Normal Lungs: Normal Abdomen: Normal Genitalia: Hydrocele, S/P Incision to Left Scrotum Rectum: Normal Extremities: Normal Spine: Normal Neuro Exam: Normal Other: Normal Assessment and Plan : Patient seen and examined at bedside. S/P L Hydrocelectomy. Sequential Compression Device for VTE Plan: Admit to Inpatient for observation and pain management MTDD
== END 2019-01-13 13:20 | disposition home or self-care (01) | DRG 483 ==
LOC: H.OPSURG 09:00 → H.MEDSURG1 15:20 → UNDOADMIN 18:59 → H.MEDSURG1 18:59
PROVIDERS: ADMIT Urology; ATTEND Urology
PROC: 0VB70ZZ Excision of Left Tunica Vaginalis, Open Approach (ICD-10-PCS; principal; 2019-01-11 11:00)
DX: N43.3 Hydrocele, unspecified (principal)